=== PATIENT | female | born 2000 | race Hispanic/Latino ===

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

== ENCOUNTER 2019-06-06 23:16 | Emergency (ER) | payer OTHER, SELFPAY ==
--- OUTSIDE RECORDS SUMMARY | 2019-06-06 23:18 | XMS REPORT ---
:2000 Author Organization [facility] Address [address] Hernandez [address] [place] [id number] Care Team Providers Name Role Phone Unavailable Unavailable Unavailable Problems This patient has no known problems. Allergies, Adverse Reactions, Alerts This patient has no known allergies or adverse reactions. Medications This patient has no known medications.
[2019-06-07] MEDS ORDERED: KETOROLAC 30 MG/ML INJ ONE (00:35)
[2019-06-07 01:15] LABS: Urine Blood NEGATIVE (NEG); Urine Glucose NEGATIVE (NEG); Urine Protein NEGATIVE (NEG); Urine Specific Gravity 1.025 (1.005-1.030); Urine pH 6.5 (5.0-7.0)
--- NOTE | 2019-06-07 02:18 | ER ---
Nurse's Notes [facility] Name: Lauryn Self Age: 19 yrs Sex: Female : 2000 Arrival Date: 06/06/2019 Time: 23:17 Bed 23 Private MD: Diagnosis: Other and unspecified noninfective gastroenteritis and colitis Presentation: 06/06 23:35 Presenting complaint: Patient states: "I have been having this pain for about a week ca1 now but it has gotten worse tonight. It starts at right here (points at LLQ) then goes all the way to the back on the L side. It hurts worse when I pee, stand up straight, sit down". Transition of care: patient was not received from another setting of care. Onset of symptoms was June 06, 2019. Risk Assessment: Do you want to hurt yourself or someone else? Patient reports no desire to harm self or others. Initial Sepsis Screen: Does the patient meet any 2 criteria? No. Patient's initial sepsis screen is negative. Does the patient have a suspected source of infection? No. Patient's initial sepsis screen is negative. Care prior to arrival: None. 23:35 Method Of Arrival: Ambulatory ca1 23:35 Acuity: MANDI 3 ca1 Triage Assessment: 23:39 General: Appears in no apparent distress. comfortable, Behavior is calm, cooperative, ca1 appropriate for age. Pain: Complains of pain in left inguinal area, LLQ Pain radiates to posterior aspect of left lateral abdomen, left lower back Pain Quality of pain is described as squeezing, Is episodic. EENT: No deficits noted. No signs and/or symptoms were reported regarding the EENT system. Neuro: Level of Consciousness is awake, alert, obeys commands, Oriented to person, place, time, situation, Appropriate for age. Cardiovascular: Heart tones S1 S2 present Capillary refill < 3 seconds Patient's skin is warm and dry. Respiratory: Airway is patent Respiratory effort is even, unlabored, Respiratory pattern is regular, symmetrical, Breath sounds are clear bilaterally. GI: Abdomen is flat, non-distended, Bowel sounds present X 4 quads. Abd is soft X 4 quads Abdomen is tender to palpation in left lower quadrant. : Reports burning with urination, since a few days ago urgency, urinary frequency. Derm: Skin is intact, is healthy with good turgor, Skin is pink, warm \\T\\ dry. Musculoskeletal: Circulation, motion, and sensation intact. Capillary refill < 3 seconds, Range of motion: intact in all extremities. 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 - Social history:: Smoking status: Patient/guardian denies using tobacco. - Ebola Screening: : Patient negative for fever greater than or equal to 101.5 degrees Fahrenheit, and additional compatible Ebola Virus Disease symptoms Patient denies exposure to infectious person Patient denies travel to an Ebola-affected area in the 21 days before illness onset No symptoms or risks identified at this time. Screenin:44 Abuse screen: Denies threats or abuse. Denies injuries from another. Nutritional ca1 screening: No deficits noted. Tuberculosis screening: No symptoms or risk factors identified. Fall Risk None identified. Assessment: 23:45 Reassessment: See TRIAGE ASSESSMENT. Neuro: Level of Consciousness is awake, alert, ca1 obeys commands. 06/07 00:41 Reassessment: No changes from previously documented assessment. Patient and/or family lc1 updated on plan of care and expected duration. Pain level reassessed. Patient is alert, oriented x 3, equal unlabored respirations, skin warm/dry/pink. Pain: Complains of pain in left low back and abdomen and left lower quadrant. 01:24 Reassessment: Patient and/or family updated on plan of care and expected duration. Pain lc1 level reassessed. Patient is alert, oriented x 3, equal unlabored respirations, skin warm/dry/pink. Patient states feeling better. 02:20 Reassessment: No changes from previously documented assessment. Patient and/or family lc1 updated on plan of care and expected duration. Pain level reassessed. Patient is alert, oriented x 3, equal unlabored respirations, skin warm/dry/pink. Patient states feeling better. Vital Signs: 06/06 23:39 BP 116 / 66; Pulse 82; Resp 17 S; Temp 98.2(O); Pulse Ox 100% on R/A; Weight 63.5 kg ca1 (R); Height 5 ft. 1 in. (154.94 cm) (R); Pain 6/10; 06/07 00:40 BP 107 / 63; Pulse 86; Resp 16; Pulse Ox 99% on R/A; lc1 01:40 BP 100 / 64; Pulse 51; Resp 16; Pulse Ox 98% on R/A; lc1 02:20 BP 115 / 65; Pulse 56; Resp 16; Pulse Ox 100% on R/A; lc1 06/06 23:39 Body Mass Index 26.45 (63.50 kg, 154.94 cm) ca1 ED Course: 06/06 23:17 Patient arrived in ED. am2 23:38 [facility]cc[facility] snw 23:38 Gagan Chu MD is Attending Physician. snw 23:39 Triage completed. ca1 23:39 Arm band placed on right wrist. ca1 23:44 Patient has correct armband on for positive identification. Bed in low position. Call ca1 light in reach. Side rails up X 1. Pulse ox on. NIBP on. Warm blanket given. 06/07 00:13 Dyan Altamirano is Primary Nurse. lc1 01:24 No apparent distress. Resting quietly. Awaiting lab results, Awaiting radiology results.lc1 01:24 No provider procedures requiring assistance completed. lc1 01:33 CT completed. Patient tolerated procedure well. Patient moved to CT via wheelchair. eh Patient moved back from CT. 02:20 Patient did not have IV access during this emergency room visit. lc1 02:24 CT Stone Protocol In Process Unspecified. EDMS Administered Medications: 00:41 Drug: TORadol 30 mg Route: IM; Site: right deltoid; lc1 01:26 Follow up: Response: Pain is decreased lc1 02:42 Follow up: Response: Pain is decreased [facility] Outcome: 02:17 Discharge ordered by . snw 02:20 Discharged to home ambulatory. lc1 02:20 Condition: good 02:20 Discharge instructions given to patient, Instructed on discharge instructions, follow up and referral plans. medication usage, Demonstrated understanding of instructions, medications, Prescriptions given X 2. 02:43 Patient left the ED. 1 Signatures: Dispatcher [employer] EDMS Cyndee Mccall FNP-C FNP-[place] Juan Massey Lisa lc1 Thao Sood am2 Brianna Bridges, RN RN ca1
--- NOTE | 2019-06-07 02:20 | EDPHYS ---
Physician Documentation [facility] Name: Lauryn Self Age: 19 yrs Sex: Female : 2000 Arrival Date: 06/06/2019 Time: 23:17 Bed 23 Private MD: ED Physician Gagan hCu HPI: 06/07 00:10 This 19 yrs old Female presents to ER via Ambulatory with complaints of Pain snw With Urination, Back Pain, Pelvic Pain. 00:10 The patient presents with abdominal pain in the left lower quadrant. Onset: The snw symptoms/episode began/occurred gradually, 1 week(s) ago, and became worse 2 day(s) ago. The symptoms radiate to left back. Associated signs and symptoms: Pertinent negatives: constipation, diarrhea, fever, nausea, vomiting. The symptoms are described as crampy, shooting. Severity of pain: At its worst the pain was moderate severe. The patient has experienced similar episodes in the past, since of her Son. It is unknown whether or not the patient has recently seen a physician. 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 - Social history:: Smoking status: Patient/guardian denies using tobacco. - Ebola Screening: : Patient negative for fever greater than or equal to 101.5 degrees Fahrenheit, and additional compatible Ebola Virus Disease symptoms Patient denies exposure to infectious person Patient denies travel to an Ebola-affected area in the 21 days before illness onset No symptoms or risks identified at this time. ROS: 06/07 00:09 Constitutional: Negative for fever, chills, and weight loss, Eyes: Negative for injury, snw pain, redness, and discharge, ENT: Negative for injury, pain, and discharge, Neck: Negative for injury, pain, and swelling, Cardiovascular: Negative for chest pain, palpitations, and edema, Respiratory: Negative for shortness of breath, cough, wheezing, and pleuritic chest pain, : Negative for injury, bleeding, discharge, and swelling, MS/Extremity: Negative for injury and deformity, Skin: Negative for injury, rash, and discoloration, Neuro: Negative for headache, weakness, numbness, tingling, and seizure. Abdomen/GI: Positive for abdominal pain, of the left lower quadrant. Back: Positive for radiated pain, of the left low back. Exam: 00:09 Constitutional: This is a well developed, well nourished patient who is awake, alert, snw and in no acute distress. Head/Face: Normocephalic, atraumatic. Eyes: Pupils equal round and reactive to light, extra-ocular motions intact. Lids and lashes normal. Conjunctiva and sclera are non-icteric and not injected. Cornea within normal limits. Periorbital areas with no swelling, redness, or edema. ENT: Nares patent. No nasal discharge, no septal abnormalities noted. Tympanic membranes are normal and external auditory canals are clear. Oropharynx with no redness, swelling, or masses, exudates, or evidence of obstruction, uvula midline. Mucous membranes moist. Neck: Trachea midline, no thyromegaly or masses palpated, and no cervical lymphadenopathy. Supple, full range of motion without nuchal rigidity, or vertebral point tenderness. No Meningismus. Chest/axilla: Normal chest wall appearance and motion. Nontender with no deformity. No lesions are appreciated. Cardiovascular: Regular rate and rhythm with a normal S1 and S2. No gallops, murmurs, or rubs. Normal PMI, no JVD. No pulse deficits. Respiratory: Lungs have equal breath sounds bilaterally, clear to auscultation and percussion. No rales, rhonchi or wheezes noted. No increased work of breathing, no retractions or nasal flaring. Back: No spinal tenderness. No costovertebral tenderness. Full range of motion. Skin: Warm, dry with normal turgor. Normal color with no rashes, no lesions, and no evidence of cellulitis. MS/ Extremity: Pulses equal, no cyanosis. Neurovascular intact. Full, normal range of motion. Neuro: Awake and alert, GCS 15, oriented to person, place, time, and situation. Cranial nerves II-XII grossly intact. Motor strength 5/5 in all extremities. Sensory grossly intact. Cerebellar exam normal. Normal gait. Psych: Awake, alert, with orientation to person, place and time. Behavior, mood, and affect are within normal limits. 00:09 Abdomen/GI: Inspection: abdomen appears normal, Bowel sounds: normal, Palpation: mild abdominal tenderness, moderate abdominal tenderness, in the left lower quadrant. Vital Signs: 06/06 23:39 BP 116 / 66; Pulse 82; Resp 17 S; Temp 98.2(O); Pulse Ox 100% on R/A; Weight 63.5 kg ca1 (R); Height 5 ft. 1 in. (154.94 cm) (R); Pain 6/10; 06/07 00:40 BP 107 / 63; Pulse 86; Resp 16; Pulse Ox 99% on R/A; lc1 01:40 BP 100 / 64; Pulse 51; Resp 16; Pulse Ox 98% on R/A; lc1 02:20 BP 115 / 65; Pulse 56; Resp 16; Pulse Ox 100% on R/A; lc1 06/06 23:39 Body Mass Index 26.45 (63.50 kg, 154.94 cm) ca1 MDM: 06/06 23:42 Patient medically screened. snw 06/07 02:17 Data reviewed: vital signs, nurses notes. Data interpreted: Pulse oximetry: on room air snw is 98 %. Interpretation: normal. Counseling: I had a detailed discussion with the patient and/or guardian regarding: the historical points, exam findings, and any diagnostic results supporting the discharge/admit diagnosis, lab results, radiology results, the need for outpatient follow up, to return to the emergency department if symptoms worsen or persist or if there are any questions or concerns that arise at home. Response to treatment: the patient's symptoms have mildly improved after treatment. Special discussion: Based on the history and exam findings, there is no indication for further emergent testing or inpatient evaluation. 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 I discussed with the patient/guardian the need to see the primary care provider for further evaluation of the symptoms. 02:18 Special discussion: Based on the patient's Hx, exam, and Dx evaluation, there is no snw indication for emergent surgery or inpatient Tx. It is understood by the patient/guardian that if the Sx's persist or worsen they need to return immediately for re-evaluation. 06/06 23:55 Order name: Urine Dipstick--Ancillary (enter results); Complete Time: 01:17 cm6 06/06 23:55 Order name: Urine --Ancillary (enter results); Complete Time: 01:17 cm6 06/07 00:04 Order name: CT Stone Protocol snw 06/06 23:39 Order name: Urine Test (obtain specimen); Complete Time: 23:50 snw 06/06 23:39 Order name: Urine Dipstick-Ancillary (obtain specimen); Complete Time: 23:50 snw Administered Medications: 00:41 Drug: TORadol 30 mg Route: IM; Site: right deltoid; lc1 01:26 Follow up: Response: Pain is decreased lc1 02:42 Follow up: Response: Pain is decreased lc1 Disposition: 07:00 Co-signature as Attending Physician, Gagan Chu MD Available for consultation at ps1 all times . Disposition: 06/07/19 02:17 Discharged to Home. Impression: Other and unspecified noninfective gastroenteritis and colitis. - Condition is Stable. - Discharge Instructions: Colitis. - Prescriptions for Mobic 7.5 mg Oral Tablet - take 1 tablet by ORAL route once daily take with food; 20 tablet. promethazine 25 mg Oral Tablet - take 1 tablet by ORAL route every 6 hours As needed; 20 tablet. - Medication Reconciliation Form, Thank You Letter, Antibiotic Education, Prescription Opioid Use form. - Follow up: Private Physician; When: 2 - 3 days; Reason: Recheck today's complaints, Continuance of care, Re-evaluation by your physician. Follow up: Emergency Department; When: As needed; Reason: Worsening of condition. Signatures: Dispatcher [employer] EDPA Cyndee Mccall, MIGUELITO-Johan RETREAD BUILDER-CsnDyan Ni lc1 Gagan Chu MD MD ps1 Cyrus, Brianna, RN RN ca1 Corrections: (The following items were deleted from the chart) 02:43 02:17 06/07/2019 02:17 Discharged to Home. Impression: Other and unspecified lc1 noninfective gastroenteritis and colitis. Condition is Stable. Forms are Medication Reconciliation Form, Thank You Letter, Antibiotic Education, Prescription Opioid Use. Follow up: Private Physician; When: 2 - 3 days; Reason: Recheck today's complaints, Continuance of care, Re-evaluation by your physician. Follow up: Emergency Department; When: As needed; Reason: Worsening of condition. snw
--- NOTE | 2019-06-07 09:53 | RAD REPORT ---
EXAM DESCRIPTION: CT - Stone Protocol - 06/07/2019 5:00 am CLINICAL HISTORY: The patient is 19 years old and is Female; ABD PAIN TECHNIQUE: Axial computed tomography images of the abdomen and pelvis without intravenous contrast. Sagittal and coronal reformatted images were created and reviewed. This CT exam was performed usi ng one or more of the following dose reduction techniques: automated exposure control, adjustment o f the mA and/or kV according to patient size, and/or use of iterative reconstruction technique. COMPARISON: None. FINDINGS: LUNG BASES: Unremarkable. No mass. No consolidation. ABDOMEN: LIVER: Unremarkable. GALLBLADDER AND BILE DUCTS: Unremarkable. No calcified stones. No ductal dilation. PANCREAS: Unremarkable. No ductal dilation. SPLEEN: Unremarkable. No splenomegaly. ADRENALS: Unremarkable. No mass. KIDNEYS AND URETERS: Unremarkable. No obstructing stones. No hydronephrosis. STOMACH AND BOWEL: Unremarkable. No obstruction. No mucosal thickening. PELVIS: APPENDIX: The appendix is seen and is within normal limits. BLADDER: Unremarkable. No stones. REPRODUCTIVE: Bilateral ovarian cysts are present. ABDOMEN and PELVIS: INTRAPERITONEAL SPACE: Mild mesenteric stranding in the right lower quadrant. No free air. No significant fluid collection. BONES/JOINTS: No acute fracture. No dislocation. SOFT TISSUES: Tiny fat-containing umbilical hernia. VASCULATURE: Unremarkable. No abdominal aortic aneurysm. LYMPH NODES: Unremarkable. No enlarged lymph nodes. IMPRESSION: 1. No acute abdominal or pelvic abnormality. No obstructive uropathy. 2. Mild mesenteric stranding in the right lower abdomen which is nonspecific although may represent terminal ileitis or enteritis. Normal-appearing appendix. 3. Bilateral ovarian cysts. No follow-up imaging is recommended. Reference: US recommendations base d on Radiology 2009;256(3):943-54; CT/MR recommendations based on J Am Tamia Radiol 2013;10:675-68 1. Electronically signed by: Reinaldo Graham DO 06/07/2019 1:40 AM CDT Due to temporary technical issues with the PACS/Fluency reporting system, reports are being signed by the in house radiologist as a courtesy to ensure prompt reporting. The interpreting radiologist is f ully responsible for the content of the report.
== END 2019-06-07 02:43 | disposition home or self-care (01) ==
LOC: ER 23:16
DX: K52.89 Other specified noninfective gastroenteritis and colitis (principal); Z88.8 Allergy status to other drugs, medicaments and biological substances
CPT/HCPCS: 74176; 76377; 81003; 81025; 96372; 99284

== ENCOUNTER 2019-09-13 11:30 | Emergency (ER) | payer SELFPAY ==
--- OUTSIDE RECORDS SUMMARY | 2019-09-13 11:32 | XMS REPORT | Summary of Care ---
:2000 Author Organization [facility] - Health Address [address] [place] [address] Care Team Providers Name Role Phone Sindy Wilson MAYELIN Primary Care Provider Encounter Details Date Type Department Care Team Description 07/04/2019 Orders Only [facility] Doctor Unassigned, No [address] [facility] [address] [place] [id number] Allergies Active Allergy Reactions Severity Noted Date Comments Diphenhydramine Hcl Hives 01/20/2015 Pt states she gets "bumps all over face and covers her eyes" Seafood/Fish Hives 01/20/2015 documented as of this encounter (statuses as of 07/04/2019) Medications Medication Sig Dispensed Refills Start Date End Date Status QAT34-vmoc Take 1 Dose by 30 Each 6 06/18/2018 Active carb,avd-FS-zdv-dha mouth daily. ([employer]) 35 mg iron-1 mg -50 mg-300 mg combo pack vitamin w/FA Take 1 tablet by 100 tablet 3 12/22/2018 Active tabletIndications: mouth daily. Anxiety disorder, unspecified type, Bipolar affective disorder, remission status unspecified, Two vessel umbilical cord, 39 weeks gestation of , Obesity (BMI 30-39.9), Liveborn , [place] , born in hospital by vaginal delivery docusate calcium 240 Take 1 capsule by 30 capsule 1 12/22/2018 Active mg capsuleIndications: mouth once daily Anxiety disorder, as needed for unspecified type, Constipation. Bipolar affective disorder, remission status unspecified, Two vessel umbilical cord, 39 weeks gestation of , Obesity (BMI 30-39.9), Liveborn , of [place] , born in hospital by vaginal delivery ferrous sulfate 325 mg Take 1 tablet by 30 tablet 2 12/22/2018 Active (65 mg iron) mouth daily. tabletIndications: Anxiety disorder, unspecified type, Bipolar affective disorder, remission status unspecified, Two vessel umbilical cord, 39 weeks gestation of , Obesity (BMI 30-39.9), Liveborn , of [place] , born in hospital by vaginal delivery ibuprofen 600 mg Take 1 tablet by 30 tablet 1 12/22/2018 Active tabletIndications: mouth every 6 Anxiety disorder, (six) hours as unspecified type, needed for Pain Bipolar affective (scale 1-3) or disorder, remission Pain (scale 4-6) status unspecified, (Pain). Take with Two vessel umbilical food or milk. cord, 39 weeks gestation of , Obesity (BMI 30-39.9), Liveborn , of [place] , born in hospital by vaginal delivery documented as of this encounter (statuses as of 07/04/2019) Active Problems Problem Noted Date Liveborn , of [place] , born in hospital by vaginal 2018 delivery 39 weeks gestation of 12/20/2018 Obesity (BMI 30-39.9) 12/20/2018 Two vessel umbilical cord 11/01/2018 Anxiety disorder, unspecified type 05/04/2018 Bipolar affective disorder, remission status unspecified 05/04/2018 documented as of this encounter (statuses as of 07/04/2019) Immunizations Name Administration Dates Next Due Influenza Virus Vaccine Quad .5 mL IM 6+ MO 08/02/2018 08/02/2019 Tdap 10/09/2018, 11/15/2014 documented as of this encounter Social History Tobacco Use Types Packs/Day Years Used Date Never Smoker Smokeless Tobacco: Never Used Alcohol Use Drinks/Week oz/Week Comments No Sex Assigned at Date Recorded Not on file Job Start Date Occupation Industry Not on file Not on file Not on file Travel History Travel Start Travel End No recent travel history available. documented as of this encounter Last Filed Vital Signs Not on filedocumented in this encounter Plan of Treatment Health Maintenance Due Date Last Done Comments MENINGOCOCCAL B VACCINES (1 of 2009 2 - Risk Bexsero 2-dose series) HPV VACCINES (1 - Female 2014 3-dose series) INFLUENZA VACCINE (#1) 2019 08/02/2018 CHLAMYDIA SCREENING 12/20/2019 12/20/2018, 07/04/2018, 06/04/2018 DTaP,Tdap,and Td Vaccines (3 - 10/09/2028 10/09/2018, Td) 11/15/2014 MENINGOCOCCAL VACCINE Aged Out No longer eligible based on patient's age to complete this topic PNEUMOCOCCAL 0-64 YEARS Aged Out No longer eligible based COMBINED SERIES on patient's age to complete this topic documented as of this encounter Procedures Procedure Name Priority Date/Time Associated Diagnosis Comments NO SHOW OR MISSED Routine 07/04/2019 2:25 PM APPOINTMENT POLICY CDT ACKNOWLEDGEMENT documented in this encounter Results Not on filedocumented in this encounter Insurance Payer Benefit Plan Subscriber ID Effective Phone Address Type / Group Dates [facility] [id number] xxxxxxxxx 2019-[id number] [phone] Medicaid WOMEN nt [address] [place] [address] documented as of this encounter
--- OUTSIDE RECORDS SUMMARY | 2019-09-13 11:32 | XMS REPORT ---
:2000 [facility] Address [address] Hernandez [address] [place] [id number] Care Team Providers Name Role Phone Unavailable Unavailable Unavailable Problems This patient has no known problems. Allergies, Adverse Reactions, Alerts This patient has no known allergies or adverse reactions. Medications This patient has no known medications.
--- OUTSIDE RECORDS SUMMARY | 2019-09-13 11:33 | XMS REPORT | Summary of Care ---
:2000 Author Organization [facility] Address [address] [place] [id number] Care Team Providers Name Role Phone Sindy Wilson [facility] Primary Care Provider Reason for Visit Reason Comments Well Woman Exam BC Encounter Details Date Type Department Care Team Description 07/04/[address] [facility]- Sindy Wilson Well woman exam (Primary Dx); Ritesh Prado [facility] control counseling; [address] Obesity (BMI 30-39.9); [place], [place] Screen for STD (sexually transmitted disease) [id number] [place], [place] [id number] Allergies Active Allergy Reactions Severity Noted Date Comments Diphenhydramine Hcl Hives 01/20/2015 Pt states she gets "bumps all over face and covers her eyes" Seafood/Fish Hives 01/20/2015 documented as of this encounter (statuses as of 07/04/2019) Medications Medication Sig Dispensed Refills Start Date End Date Status [id number] Take 1 Dose by 30 Each 6 06/18/2018 Active carb,rtk-ZI-jdi-dha mouth daily. ([employer]) 35 mg iron-1 mg -50 mg-300 mg combo pack vitamin w/FA Take 1 tablet by 100 tablet 3 12/22/2018 Active tabletIndications: mouth daily. Anxiety disorder, unspecified type, Bipolar affective disorder, remission status unspecified, Two vessel umbilical cord, 39 weeks gestation of , Obesity (BMI 30-39.9), Liveborn infant, of [place] , born in hospital by [...] of 07/04/2019) Active Problems Problem Noted Date Well woman exam 07/04/2019 Contraceptive management 07/04/2019 Obesity (BMI 30-39.9) 12/20/2018 Anxiety disorder, unspecified type 05/04/2018 Bipolar affective disorder, remission status unspecified 05/04/2018 documented as of this encounter (statuses as of 07/04/2019) Resolved Problems Problem Noted Date Resolved Date Liveborn infant, of [place] , born in hospital by 12/21/201807/04 vaginal delivery 39 weeks gestation of 12/20/2018 07/04/2019 Two vessel umbilical cord 11/01/2018 07/04/2019 documented as of this encounter (statuses as [...] of this encounter Last Filed Vital Signs Vital Sign Reading Time Taken Comments Blood Pressure 119/76 07/04/2019 2:35 PM CDT Pulse 76 07/04/2019 2:35 PM CDT Temperature 36.7 C (98 F) 07/04/2019 2:35 PM CDT Respiratory Rate 16 07/04/2019 2:35 PM CDT Oxygen Saturation - - Inhaled Oxygen Concentration - - Weight 71.9 kg (158 lb 9 oz) 07/04/2019 2:35 PM CDT Height 154.9 cm (5' 1") 07/04/2019 2:35 PM CDT Body Mass Index 29.96 07/04/2019 2:35 PM CDT documented in this encounter Patient Instructions Patient InstructionsCalli Garg RN - 07/04/2019 2:15 PM CDT Understanding STDs When it comes to sex, nothing is risk-free. Any sexual contact with the penis, vagina, anus, or mouth can spread a sexually transmitted disease (STD). The only sure way to prevent STDs is abstinence (not having sex). But there are ways to make sex safer. Use a latex condom each time you have sex. And choose your partner wisely. Use condoms for safer sex If you have sex, latex condoms provide the best protection against STDs. Latex condoms stop the exchange of body fluids that carry certain STDs. They also limit contact with affected skin. Be aware though, a condom doesnt cover all skin. So, affected skin that is not covered can still transfer disease. But you re safer with a condom than without one. Use a condom even if you use other control. While control methods like the pill or IUD help prevent , they do not protect against STDs. Choose the right condom Condoms made of latex prevent disease best. If youre allergic to latex, use polyurethane condoms instead. Male condoms fit over the penis. Female condoms line the vagina. Before buying a condom, read the label to be sure it prevents disease. Some novelty condoms dont. The right lubricant helps Buy lubricated condoms or use lubricant. This provides greater comfort and reduces the risk of condom breakage. Use only water-based lubricants. Dont use oil, lotion, or petroleum jelly. They can weaken the condom, causing breakage. Also, you may want to choose lubricants without nonoxynol-9. Its now known that this spermicide does not prevent disease and may cause irritation. Use condoms correctly For condoms to work, they must be used the right way. Keep these tips in mind: Use a new latex condom each time you have sex. Slip the condom on the penis before any contact ismade. When ready to withdraw, hold the rim of the condom as the penis pulls out. This prevents the condom from slipping off. Check the expiration date before using a condom. Dont store condoms in places that can get hot, such as a car or a wallet that is carried in a back pocket. Get to know your partner Safer sex is a process. It involves getting to know your partner and making informed choices. Ask each other how many partners you have had in the past, and how many you have now. Find out if either ofyou has an STD. If you decide to have sex, use a condom each time. Dont stop using condoms unlessyoure sure neither of you has other partners and youve both been tested to confirm you donthave STDs. Then stay free of disease by having sex only with each other (monogamy). Keep your cool Dont let alcohol or drugs cloud your judgment. They could lead you to have sex with someone you wouldnt have chosen if you were sober. Or, you might forget to use a condom. If you do plan to havesex, keep a latex condom with you. Dont wait until youre in the heat of passion to try to findone. Consider abstinence The only way to be sure you wont get an STD is to abstain from sex. Abstinence is a choice that many people make at some point in their lives. Maybe you want to wait until you are sure youre ready before you have sex. Maybe youd like a break from the responsibilities of sex for a while. Or maybe you just want to know your partner better before taking the next step. Abstinence is a choice youcan make now to protect your future. Date Last Reviewed: 09/29/201619996419-8494 [employer]. [address] [place] [address], [place] [address]. All rights reserved. This information is not intended as a substitute for professional medical care. Always follow your healthcare professional's instructions. Prevention Guidelines,Women Ages 18 to 39 Screening tests and vaccines are an important part of managing your health. A screening test is doneto find possible disorders or diseases in people who don' t have any symptoms. The goal is to find a disease early so lifestyle changes can be made and you can be watched more closely to reduce the riskof disease, or to detect it early enough to treat it most effectively. Screening tests are not considered diagnostic, but are used to determine if more testing is needed. Health counseling is essential, too. Below are guidelines for these, for women ages 18 to 39. Talk with your healthcare provider tomake sure youre up-to- date on what you need. Screening Who needs it How often Alcohol misuse All women in this age group At routine exams Blood pressure All women in this age group Yearly checkup if your blood pressure is normal Normal blood pressure is less than 120/80 mm Hg If your blood pressure reading is higher than normal, follow the advice of your healthcare provider Breast cancer All women in this age group should talk with their healthcare providers about the needfor clinical breast exams (CBE)1 Clinical breast exam every 3 years1 Cervical cancer Women ages 21 and older Women between ages 21 and 29 should have a Pap test every 3 years; women between ages 30 and 65 are advised to have a Pap test plus an HPV test every 5 years Chlamydia Sexually active women ages 25 and younger, and women at increased risk for infection (suchas having multiple sex partners) Every year if you're at risk or have symptoms Depression All women in this age group At routine exams Type 2 diabetes, prediabetes All women with no symptoms who are overweight or obese and have 1 or more other risk factors for diabetes At least every 3 years. Also, testing for diabetes during after the 24th week. Type 2 diabetes, prediabetes All women diagnosed with gestational diabetes Lifelong testing every 3 years Type 2 diabetes All women with prediabetes Every year Gonorrhea Sexually active women at increased risk for infection At routine exams Hepatitis C Anyone at increased risk At routine exams HIV All women should be tested at least once for HIV between the ages of 13 and 64 At routine exams.Those with risk factors for HIV should be tested at least annually. Obesity All women in this age group At routine exams Syphilis Women at increased risk for infection should talk with their healthcare provider At routineexams Tuberculosis Women at increased risk for infection should talk with their healthcare provider Ask your healthcare provider Vision All women in this age group At least 1 complete exam in your 20s, and 2 in your 30s Vaccine2 Who needs it How often Chickenpox (varicella) All women in this age group who have no record of this infection or vaccine 2doses; the second dose should be given 4 to 8 weeks after the first dose Hepatitis A Women at increased risk for infection should talk with their healthcare provider 2 dosesgiven at least 6 months apart Hepatitis B Women at increased risk for infection should talk with their healthcare provider 3 dosesover 6 months; second dose should be given 1 month after the first dose; the third dose should be given at least 2 months after the second dose and at least 4 months after the first dose Haemophilus influenzaeType B (HIB) Women at increased risk for infection should talk with their healthcare provider 1 to 3 doses Human papillomavirus (HPV) All women in this age group up to age 26 3 doses; the second dose should be given 1 to 2 months after the first dose and the third dose given 6 months after the first dose Influenza (flu) All women in this age group Once a year Measles, mumps, rubella (MMR) All women in this age group who have no record of these infections or vaccines 1 or 2 doses Meningococcal Women at increased risk for infection should talk with their healthcare provider 1 or more doses Pneumococcal conjugate vaccine (PCV13)and pneumococcal polysaccharide vaccine(PPSV23) Women at increased risk for infection should talk with their healthcare provider PCV13: 1 dose ages 19 to 65 (protects against 13 types of pneumococcal bacteria) PPSV23: 1 to2 doses through age 64, or 1 dose at 65 or older (protects against 23 types of pneumococcal bacteria) Tetanus/diphtheria/pertussis (Td/Tdap) booster All women in this age group Td every 10 years, or a one-time dose of Tdap instead of a Td booster after age 18 , then Td every 10 years Counseling Who needs it How often BRCA gene mutation testing for breast and ovarian cancer susceptibility Women with increased risk for having gene mutation When your risk is known Breast cancer and chemoprevention Women at high risk for breast cancer When your risk is known Diet and exercise Women who are overweight or obese When diagnosed, and then at routine exams Domestic violence Women at the age in which they are able to have children At routine exams Sexually transmitted infection prevention Women who are sexually active At routine exams Skin cancer Prevention of skin cancer in fair-skinned adults At routine exams Use of tobacco and the health effects it can cause All women in this age group Every visit 1 According to the ACS, women ages 20 to 39 years should have a clinical breast exam (CBE) as part of their routine health exam every 3 years. Breast self- exams are an option for women starting in their 20s.But the USPSTF does not recommend CBE. Date Last Reviewed: 07/30/201719994923-3711 [employer]. [address] [place] [address], [place] [address]. All rights reserved. This information is not intended as a substitute for professional medical care. Always follow your healthcare professional's instructions. Understanding HIV and AIDS If you know how HIV (human immunodeficiency virus) can get into your body and what happens once its there, youll be better prepared to protect yourself or others against this virus. A person withHIV can look and feel perfectly healthy. But that person can give HIV to others as soon as he or sheis infected with the virus. Note: Having unsafe or unprotected sex or sharing needles put you at risk for HIV. Talk with your healthcare provider about ways to protect yourself or a loved one from getting HIV. How HIV enters the body HIV is carried in semen, vaginal fluid, blood, and breast milk. During sex, HIV can enter the body through the fragile tissue that lines the vagina, penis, anus,and mouth. During drug use, tattooing, or body piercing, the virus can enter the bloodstream through a shared needle. A mother who has HIV can infect her child during childbirth and through . How HIV infection progresses After HIV enters the body, it attacks the immune system in stages. A person with HIV can infect others once the virus enters the bloodstream. HIV with no symptoms. A person with HIV may have no symptoms for years. A positive blood test for HIV antibodies 6 weeks to 6 months after HIV enters the body may be the only sign of infection. HIV with symptoms.Some people develop an illness similar to mononucleosis (or "mono") 2 to 4 weeksafter the virus enters the body. Symptoms may include swollen lymph glands, chills, fever, night sweats, weakness, weight loss, skin rashes, mouth ulcers, or sore throat. Symptoms may be mild at first and then slowly go away. In a very few individuals, symptoms may get progressively worse and last forlonger and longer periods. AIDS. AIDS is the last stage of HIV infection. Diseases and cancers begin to overcome the body. It is these diseases, not the virus itself, that cause . HIV may also attack the brain and nervous system, causing seizures and loss of memory and body movement. Date Last Reviewed: 08/30/201619997093-6965 [employer]. [address] [place] [address], [place] [address]. All rights reserved. This information is not intended as a substitute for professional medical care. Always follow your healthcare professional's instructions. Clinical Breast Exam Many health organizations recommend a yearly clinical breast exam. This exam may be done by a didactic program in dietetics director, family healthcare provider, nurse practitioner, nurse shingle grader, or specially trained nurse. Yearly breast exams help tomake surethat breast conditions are found early. Your healthcare providers role A healthcare professional knows the tests and follow-up care needed if a problem is found. Your clinical exam is also a great time to ask questions about breast self-exams. You can find out if yourechecking your breasts in the best way. Or you may want to ask how , breast implants, or breast reduction surgery affect the way you should check your breasts. Diagnostic tests If a clinical exam reveals a breast change, you may have other tests to find out more. These tests may include: Mammography. A low-dose X-ray of your breast tissue. Ultrasound. An imaging test that uses sound waves to create images of your breast. Biopsy. A small amount of breast tissue is removed by needle or by a cut ( incision). The tissue is then checked under a microscope. Guidelines for having clinical breast exams The [place] [employer] recommends that starting at age 29, you should have a clinical breast exam every 1 to 3 years. After age 40, have a clinical breast exam each year. If youre at higher risk for breast cancer, you may need exams more often. Risk factors for breast cancer may include: Being over 50 or postmenopausal Having a family history of breast cancer Having the BRCA1 or BRCA2 gene mutation or certain other gene mutations Having more menstrual periods due to starting menstruation early(before age 12) or having a late menopause (after age 55) Having no pregnancies Having a first after age 30 Being obese Having a history of radiation treatment to your chest area Exposure to JOANN during your mother's Not being active Drinking too much alcohol Having dense breast tissue Taking hormone therapy after menopause Other health organizations have different recommendations. Talk with your healthcare provider about what is best for you. Date Last Reviewed: 05/30/201719994407-5332 [employer]. [address] [place] [address]. All rights reserved. This information is not intended as a substitute for professional medical care. Always follow your healthcare professional's instructions. Breast Health: Breast Self-Awareness What is breast self-awareness? Breast self-awareness is knowing how your breasts normally look and feel. Your breasts change as yougo through different stages of your life. So its important to learn what is normal for your breasts. Breast self-awareness helps you notice any changes in your breasts right away. Report any changesto your healthcare provider. Why is breast self-awareness important? Many experts now say that women should focus on breast self-awareness instead of doing a breast self-examination (BSE). These experts include the [place] [employer], the U.S. Preventive Services Task Force, and the [place] [employer]. Some experts even advise notteaching women to do a BSE. Thats because research hasnt shown a clear benefit to doing BSEs. Breast self-awareness is different than a BSE. Breast self-awareness isnt about following a certain method and schedule. Its about knowing what's normal for your breasts. That way you can notice even small changes right away. If you see any changes, report them to your healthcare provider. Changes to look for Call your healthcare provider if you find any changes in your breasts that concern you. These changes may include: A lump Nipple discharge other than breastmilk, especially a bloody discharge Swelling A change in size or shape Skin irritation, such as redness, thickening, or dimpling of the skin Swollen lymph nodes in the armpit Nipple problems, such as pain or redness If you find a lump Contact your provider if you find lumpiness in one breast, feel something different in the tissue, or feel a definite lump. Sometimes lumpiness may be due to menstrual changes. But there may be reason for concern. Your provider may want to see you right away if you have: Nipple discharge that is bloody Skin changes on your breast, such as dimpling or puckering Its normal to be upset if you find a lump. But its important to contact your provider right away. Remember that most breast lumps are benign. This means they are not cancer. Date Last Reviewed: 05/30/201719991174-0710 [employer]. [address] [place] [address]. All rights reserved. This information is not intended as a substitute for professional medical care. Always follow your healthcare professional's instructions. Understanding The [employer] MyPlate The USDA (U.S. Department of Agriculture) has guidelines to help you make healthy food choices. These are called MyPlate. MyPlate shows the food groups that make up healthy meals using the image of a place setting. Before you eat, think about the healthiest choices for what to put onto your plate or into your cup or bowl. To learn more about building a healthy plate, visit www.choosemyplate.gov. The food groups Fruits. Any fruit or 100% fruit juice counts as part of the Fruit Group. Fruits may be fresh, canned, frozen, or dried, and may be whole, cut-up, or pureed. Make half your plate fruits and vegetables. Vegetables. Any vegetable or 100% vegetable juice counts as a member of the Vegetable Group. Vegetables may be fresh, frozen, canned, or dried. They can be served raw or cooked and may be whole, cut-up, or mashed. Make half your plate fruits and vegetables. Grains. All foods made from grains are part of the Grains Group. These include wheat, rice, oats,cornmeal, and barley such as bread, pasta, oatmeal, cereal, tortillas, and grits. Grains should be no more than a quarter of your plate. At least half of your grains should be whole grains. Protein. This group includes meat, poultry, seafood, beans and peas, eggs, processed soy products(like tofu), nuts (including nut butters), and seeds. Make protein choices no more than a quarter ofyour plate. Meat and poultry choices should be lean or low fat. Dairy. All fluid milk products and foods made from milk that contain calcium , like yogurt and cheese, are part of the Dairy Group. (Foods that have little calcium, such as cream, butter, and cream cheese, are not part of the group.) Most dairy choices should be low-fat or fat-free. Oils. These are fats that are liquid at room temperature. They include canola , corn, olive, soybean, and sunflower oil. Foods that are mainly oil include mayonnaise, certain salad dressings, and soft margarines. You should have only 5 to 7 teaspoons of oils a day. You probably already get this muchfrom the food you eat. Date Last Reviewed: 05/30/201719995352-7105 [employer]. [address] [place] [address], [place] [address]. All rights reserved. This information is not intended as a substitute for professional medical care. Always follow your healthcare professional's instructions. Eating Heart-Healthy Foods Eating has a big impact on your heart health. In fact, eating healthier can improve several of your heart risks at once. For instance, it helps you manage weight, cholesterol, and blood pressure. Here are ideas to help you make heart- healthy changes without giving up allthe foods and flavors you love. Getting started Talk with your healthcare provider about eating plans, such as the DASH or Mediterranean diet. You may also be referred to a dietitian. Change a few things at a time. Give yourself time to get used to a few eating changes before adding more. Work to create a tasty, healthy eating plan that you can stick to for the rest of your life. Goals for healthy eating Below are some tips to improve your eating habits: Limit saturated fats and trans fats. Saturated fats raise your levels of cholesterol, so keep these fats to a minimum. They are found in foods such as fatty meats, whole milk, cheese, and palm and coconut oils. Avoid trans fats because they lower good cholesterol as well as raise bad cholesterol. Trans fats are most often found in processed foods. Reduce sodium (salt) intake. Eating too much salt may increase your blood pressure. Limit your sodium intake to 2,300 milligrams (mg) per day(the amount in 1 teaspoon of salt), or less if your healthcare provider recommends it. Dining out less often and eating fewer processed foods are two great ways to decrease the amount of salt you consume. Managing calories. A calorie is a unit of energy. Your body headley calories for fuel, but if you eat more calories than your body headley, the extras are stored as fat. Your healthcare provider can help you create a diet plan to manage your calories. This will likely include eating healthier foods as well as exercising regularly. To help you track your progress, keep a diary to record what you eat and how often you exercise. Choose the right foods Aim to make these foods jeison of your diet. If you have diabetes, you may have different recommendations than what is listed here: Fruits and vegetables provide plenty of nutrients without a lot of calories. At meals, fill half your plate with these foods. Split the other half of your plate between whole grains and lean protein. Whole grains are high in fiber and rich in vitamins and nutrients. Good choices include whole-wheat bread, pasta, and brown rice. Lean proteins give you nutrition with less fat. Good choices include fish, skinless chicken, and beans. Low-fat or nonfat dairy provides nutrients without a lot of fat. Try low-fat or nonfat milk, cheese, or yogurt. Healthy fats can be good for you in small amounts. These are unsaturated fats , such as olive oil,nuts, and fish. Try to have at least 2 servings per week of fatty fish, such as salmon, sardines, mackerel, rainbow trout, and albacore tuna. These contain omega-3 fatty acids, which are good for your heart. Flaxseed is another source of a heart-healthy fat. More on heart-healthy eating Read food labels Healthy eating starts at the grocery store. Be sure to pay attention to food labels on packaged foods. Look for products that are high in fiber and protein, and low in saturated fat, cholesterol, and sodium. Avoid products that contain trans fat. And pay close attention to serving size. For instance, if you plan to eat two servings, double all the numbers on the label. Prepare food right A jackson part of healthy cooking is cutting down on added fat and salt. Look on the internet for lower-fat, lower-sodium recipes. Also, try these tips: Remove fat from meat and skin from poultry before cooking. Skim fat from the surface of soups and sauces. Broil, boil, bake, steam, grill, and microwave food without added fats. Choose ingredients that spice up your food without adding calories, fat, or sodium. Try these items: horseradish, hot sauce, lemon, mustard, nonfat salad dressings, and vinegar. For salt-free herbs and spices, try basil, cilantro, cinnamon, pepper, and isis. Date Last Reviewed: 07/30/201719992690-3314 [employer]. [address] [place] [address]. All rights reserved. This information is not intended as a substitute for professional medical care. Always follow your healthcare professional's instructions. documented in this encounter Progress Notes Sindy Wilson, WHCNP - 07/04/2019 2:15 PM CDT Chief complaint: Chief Complaint Patient presents with Well Woman Exam BC HPI: the patient is here for WWE and contraceptive management. She reports she is doing well with noissues or concerns today. She desires STI testing today and reports she desires to try the nuvaring for control but reports unprotected intercourse last night. Pt (denies) current or past physical, sexual or emotional abuse. Histories OB History Para Term AB Living 1 1 1 1 SAB TAB Ectopic Multiple Live Births 0 1 # Outcome Date GA Lbr Dinesh/2nd Weight Sex Delivery Anes PTL Lv 1 Term 12/21/18 39w4d 6 lb 3 oz (2.807 kg) M VAGINAL EPI MELISSA Past Medical History: Diagnosis Date ADHD (attention deficit hyperactivity disorder) Anxiety 2008 not on meds Asthma 2004 Resolved per pt report Bipolar affective disorder Bipolar depression 2008 not on meds Bipolar disorder Depression 2007 not on meds Manic depression Mental disorder bipolar and ADHD Ovarian cyst 05/30/2019 STD (sexually transmitted disease) 2015 Chlamyda at age 15 / medicated Family History Problem Relation Age of Onset Arthritis Mother Depression Mother Diabetes Mother Depression Maternal Aunt Depression Maternal Uncle Asthma Maternal Grandfather Alcohol abuse Father Breast Cancer NoFHx Colon Cancer NoFHx Ovarian Cancer NoFHx Uterine Cancer NoFHx Cancer NoFHx Genetic NoFHx Heart NoFHx High cholesterol NoFHx Hypertension NoFHx Mental retardation NoFHx Neurological NoFHx Osteoporosis NoFHx Psychiatry NoFHx Other - see comments NoFHx Family Status Relation Name Status Mo Alive MAunt (Not Specified) MUnc (Not Specified) MGFa (Not Specified) Fa NoFHx (Not Specified) Past Surgical History: Procedure Laterality Date INSERT CERVICAL DILATOR 12/20/2018 Social History Socioeconomic History Marital status: Single Spouse name: Not on file Number of children: 0 Years of education: Not on file Highest education level: Not on file Occupational History 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 Social Needs Financial resource strain: Not on file Food insecurity: Worry: Not on file Inability: Not on file Transportation needs: Medical: Not on file Non-medical: Not on file Tobacco Use Smoking status: Never Smoker Smokeless tobacco: Never Used Substance and Sexual Activity Alcohol use: No Drug use: Yes Types: Marijuana Sexual activity: Yes Partners: Male control/protection: None Comment: Last intercourse 07/03/2019 Lifestyle Physical activity: Days per week: Not on file Minutes per session: Not on file Stress: Not on file Relationships Social connections: Talks on phone: Not on file Gets together: Not on file Attends church service: Not on file Active member of club or organization: Not on file Attends meetings of clubs or organizations: Not on file Relationship status: Not on file Intimate partner violence: Fear of current or ex partner: Not on file Emotionally abused: Not on file Physically abused: Not on file Forced sexual activity: Not on file Other Topics Concern Service Not Asked Blood Transfusions No Caffeine Concern Not Asked Occupational Exposure Not Asked Hobby Hazards Not Asked Sleep Concern Not Asked Stress Concern Not Asked Weight Concern Not Asked Special Diet Not Asked Back Care Not Asked Exercise Not Asked Bike Helmet Not Asked Seat Belt Not Asked Self-Exams Not Asked Social History Narrative No domestic violence or abuse Lives with fiance and son, and step daughter. Patient feels safe at home. Social History Substance and Sexual Activity Sexual Activity Yes Partners: Male control/protection: None Comment: Last intercourse 07/03/2019 Labs Labs are pending. Radiology No new radiology. Allergies Lauryn is allergic to benadryl [diphenhydramine hcl] and fish [seafood/fish]. Medications Lauryn has a current medication list which includes the following prescription (s): docusate calcium, ferrous sulfate, ibuprofen, vitamin w/fa, and [id number] carb,mwg-cx-mqy-dha. Review of Systems Constitutional: Negative. HENT: Negative. Eyes: Negative. Respiratory: Negative. Breasts: Negative. Cardiovascular: Negative. Gastrointestinal: Negative. Genitourinary: Negative. Musculoskeletal: Negative. Skin: Negative. Neurological: Negative. Psychiatric/Behavioral: Negative. Endocrine: Endocrine negative BP 119/76 (BP Location: Right arm, Patient Position: Sitting, BP CUFF SIZE: Adult Medium) | Pulse 76 | Temp 36.7 C (98 F) (Oral) | Resp 16 | Ht 5' 1 " (1.549 m) | Wt 158 lb 9 oz (71.9 kg) | LMP 06/20/2019 (Approximate) | BMI 29.96 kg/m Pregravid BMI: Could not be calculated Physical Exam Vitals reviewed. Constitutional: She is oriented to person, place, and time. She appears well- developed. Her body habitus is normal. Neck: No tenderness and no mass. No thyroid nodules and no thyromegaly palpated. No neck adenopathy. Cardiovascular: Regular rate and rhythm. No gallop, no friction rub and no murmur auscultated. No peripheral edema present. Pulmonary/Chest: Breath sounds clear to auscultation. Normal inspiratory effort. Abdominal: Abdomen is soft. No mass palpated. No tenderness present. There is no hepatosplenomegaly,splenomegaly or hepatomegaly. There is no rigidity. No hernia palpated or inspected. Neuro/Psychiatric: She has a normal mood and affect. She is oriented to person, place, and time. Skin: No lesion, no rash and no ulceration present. Lymphadenopathy: No neck adenopathy present. No axillary adenopathy present. No inguinal adenopathy present. Breast: Right breast exhibits no mass, no nipple discharge and no tenderness. Left breast exhibits no mass, no nipple discharge and no tenderness. Breasts are symmetrical. Normal left breast and normalright breast Rectal: Rectal exam with normal anal tone. No mass, no external hemorrhoid and no internal hemorrhoid palpated or inspected. External genitalia: Normal external genitalia appropriate for age. Normal hair distribution. No labial lesion. Urethral meatus: Normal urethral meatus size, location and no lesion. No prolapse present. Normal urethral meatus Urethra: Normal urethra. No urethral tenderness, no mass and no urethral scarring palpated. Bladder: Bladder has no fullness, no mass palpated and no tenderness. Normal bladder Vagina:Normal vagina. No lesion inspected. Normal estrogen effect. Normal support. No abnormal vaginal discharge found. Cervix: Normal cervix. Uterus: Normal uterus Adnexa: Normal left adnexa and normal right adnexa Anus/perineum: Normal perineum and normal anus. Assessment/Plan Return to clinic in 2 weeks. for control follow up Return to clinic in 1 year for WWE or sooner as needed Rubella/VZV: immune BMI: 29 Td: 2018 Pap Smear; na Gardasil: will check records Mammogram:na Guaiac:na Colonoscopy:na Well woman exam (primary encounter diagnosis) Comment: routine Plan: return in 1 year control counseling Comment: as ordered Plan: POCT TEST Obesity (BMI 30-39.9) Comment: see bmi Plan: limit weight gain and sensible diet. Screen for STD (sexually transmitted disease) Comment: as ordered Plan: GC & CHLAMYDIA AMPLIFIED ASSAY, HIV 1/2 AG-AB WITH REFLEX This visit did not involve counseling and coordination that comprised more than 50% of the visit time. KULWINDER Capone 07/04/2019 3:26 PM Calli Talbert RN - 07/04/2019 2:15 PM CDT19 year old presents to the clinic for wwe. 1) Previous BCM: None 2) Desired BCM: Undecided 3) LMP: 06/20/2019 4) Last [facility]: 07/03/2019 5) Last Pap: N/A Results: N/A 6) Tdap: 2018 7) Gardasil: Completed per patient report. 8) C/O: Pelvic pain, seen in [facility] and diagnosed with ovarian cyst. ROR submitted for cat scan results 9) Patient denies history of physical, emotional, or sexual abuse. Patient states that she currently feels safe at home. CALLI GARG RN 07/04/2019 2:52 PM documented in this encounter Plan of Treatment Date Type Specialty Care Team Description 07/18/2019 [facility] Name Type Priority Associated Diagnoses Date/Time GC & CHLAMYDIA LAB Routine Screen for STD (sexually 07/04/2019 3:33 PM CDT AMPLIFIED ASSAY transmitted disease) HIV 1/2 AG-AB WITH LAB Routine Screen for STD (sexually 07/04/2019 3:33 PM CDT REFLEX transmitted disease) Health Maintenance Due Date Last Done Comments [...] Procedure Name Priority Date/Time Associated Diagnosis Comments POCT TEST Routine 07/04/2019 2:51 PM control Results for this CDT counseling procedure are in the results section. documented in this encounter Results POCT TEST (07/04/2019 2:51 PM CDT) POCT PREG Negative On board controls acceptable Yes with C Line POCT PREG LOT # POCT PREG TEST DATE Specimen Urine - URINE, CLEAN CATCH documented in this encounter Visit Diagnoses Diagnosis Well woman exam - Primary Routine general medical examination at a health care facility control counseling General counseling for initiation of other contraceptive measures Obesity (BMI 30-39.9) Obesity, unspecified Screen for STD (sexually transmitted disease) Screening examination for venereal disease documented in this encounter Insurance Payer Benefit Plan Subscriber ID Effective Phone Address Type / Group Dates [facility] xxxxxxxxx 2019-Zora [phone] Medicaid WOMEN nt 2006 [place] [address] Guarantor Name Account Type Relation to Date of Phone Billing Address Patient LAURYN SELF [facility] Mother [phone] [id number] (Home) [place] [address] documented as of this encounter
--- OUTSIDE RECORDS SUMMARY | 2019-09-13 11:33 | XMS REPORT | Summary of Care ---
:2000 Author Organization [facility] Address [address] [place] [address] Care Team Providers Name Role Phone Sindy Wilson [facility] Primary Care Provider Reason for Visit Reason Comments Well Woman Exam BC Encounter Details Date Type Department Care Team Description 07/04/2019 Office Visit [facility]- Sindy Wilson Well woman exam (Primary Dx); Ritesh Prado [facility] control counseling; [address] Obesity (BMI 30-39.9); [place], [place] A Screen for STD (sexually transmitted disease) [address] [place], [place] [address] Allergies Active Allergy Reactions Severity Noted Date Comments Diphenhydramine Hcl Hives 01/20/2015 Pt states she gets "bumps all over face and covers her eyes" Seafood/Fish Hives 01/20/2015 documented as of this encounter (statuses as of 07/04/2019) Medications Medication Sig Dispensed Refills Start Date End Date Status [id number] Take 1 Dose by 30 Each 6 06/18/2018 Active carb,pli-VY-koe-dha mouth daily. (CITRANATAL ASSURE) 35 mg iron-1 [...] to protect your future. Date Last Reviewed: 09/29/201619995092-4988 [employer]. [address] [place] [address], [place] [address]. All rights reserved. This information is not [...] does not recommend CBE. Date Last Reviewed: 07/30/201719997084-6743 [employer]. [address] [place] [address], [place] [address]. All rights reserved. This information is not [...] memory and body movement. Date Last Reviewed: 08/30/201619999349-2118 [employer]. [address] [place] [address], [place] [address]. All rights reserved. This information is not intended as a substitute for professional medical care. Always follow your healthcare professional's instructions. Clinical Breast Exam Many health organizations recommend a yearly clinical breast exam. This exam may be done by a cement sprayer helper, family healthcare provider, nurse practitioner, nurse coke worker, or specially trained nurse. Yearly breast exams [...] Guidelines for having clinical breast exams The [employer]st[employer]ians [employer] Gynec[employer] recommends that [...] is best for you. Date Last Reviewed: 05/30/201719998198-0171 [employer]. [address] [place] [address]. All rights reserved. This information is not [...] breast self-examination (BSE). These experts include the [employer], the U.S. Preventive Services Task Force, and the [place] [employer]stetricians [employer] Gynecologists. Some experts [...] they are not cancer. Date Last Reviewed: 05/30/201719998918-6129 [employer]. [address] [place] [address]. All rights reserved. This information is not intended as a substitute for professional medical care. Always follow your healthcare professional's instructions. Understanding [employer] The USDA (U.S. Department of Agriculture) [...] the food you eat. Date Last Reviewed: 05/30/201719996421-9417 [employer]. [address] [place] [address], [place] [address]. All rights reserved. This information is not [...] cinnamon, pepper, and isis. Date Last Reviewed: 07/30/201719992614-9542 [employer]. [address] [place] [address]. All rights reserved. 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 Review of Systems Constitutional: Negative. HENT: Negative. [...] BCM: Undecided 3) LMP: 06/20/2019 4) Last [place]: 07/03/2019 5) Last Pap: N/A Results: N/A [...] Description 07/18/2019 [facility] Name Type Priority Associated Diagnoses Date/Time [...] Phone Address Type / Group Dates [facility] xxxxxxxxx 2019-Zora [phone] Medicaid WOMEN nt [address] [place] [address] Guarantor Name Account Type Relation to Date of Phone Billing Address Patient LAURYN SELF [facility] Mother [phone] [address] (Home) [place] [address] documented as of this encounter
--- NOTE | 2019-09-13 13:46 | ER ---
Nurse's Notes [facility] Name: Lauryn Self Age: 19 yrs Sex: Female : 2000 Arrival Date: 09/13/2019 Time: 11:34 Bed Waiting Private MD: Diagnosis: Presentation: 09/13 11:53 Presenting complaint: Patient states: last time i came i had colitis and it feels like tw2 that and last night i have severe pain in my anus, i feel like i can barely walk because of the pain +N/V/D. Transition of care: patient was not received from another setting of care. Onset of symptoms was September 13, 2019. Risk Assessment: Do you want to hurt yourself or someone else? Patient reports no desire to harm self or others. Initial Sepsis Screen: Does the patient meet any 2 criteria? No. Patient's initial sepsis screen is negative. Does the patient have a suspected source of infection? No. Patient's initial sepsis screen is negative. Care prior to arrival: None. 11:53 Method Of Arrival: Ambulatory tw2 11:53 Acuity: MANDI 3 tw2 Triage Assessment: 11:55 General: Appears uncomfortable, Behavior is calm, cooperative, appropriate for age. tw2 Pain: Complains of pain in abdomen. 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 - Social history:: Smoking status: . - Ebola Screening: : Patient denies travel to an Ebola-affected area in the 21 days before illness onset. Assessment: 13:45 Reassessment: eloped due to wait time. Vital Signs: 11:55 BP 121 / 74; Pulse 79; Resp 17; Temp 98.2(O); Pulse Ox 99% on R/A; Weight 72.57 kg (R); tw2 Pain 7/10; ED Course: 11:34 Patient arrived in ED. as 11:54 Triage completed. tw2 11:54 Arm band placed on. tw2 13:45 No provider procedures requiring assistance completed. Patient did not have IV access ss during this emergency room visit. Administered Medications: No medications were administered Outcome: 13:45 Eloped from waiting room. ss 13:45 unknown 13:46 Patient left the ED. ss Signatures: Aziza Bustillo Shelby, RN RN ss Marianne Villarreal RN RN tw2
[2019-09-13 13:52] VITALS: BP 121/74; TEMP 98.2; O2SAT 99
[2019-09-13 14:04] LABS: Urine Blood NEGATIVE (NEG); Urine Glucose NEGATIVE (NEG); Urine Protein NEGATIVE (NEG); Urine pH 6.5 (5.0-7.0)
== END 2019-09-13 13:46 | disposition left against medical advice (07) ==
LOC: ER 11:30
DX: Z02.9 Encounter for administrative examinations, unspecified (principal)
CPT/HCPCS: 81003; 81025